=== PATIENT | male | born 1955 | race Caucasian/White ===

== ENCOUNTER 2019-08-18 15:59 | Inpatient (IN) ==
[2019-08-18] MEDS ORDERED: D5% in Water 1,000 ML IVC PRN (17:46)
[2019-08-18] MEDS ORDERED: Dextrose Gel 15 GM/37.5 ML TUBE PO PRN ×2 (17:46)
[2019-08-18] MEDS ORDERED: *HR* Dextrose 50 % in Water (Syg) 50 ML SYRINGE IVP PRN (17:46)
[2019-08-18] MEDS ORDERED: Nitroglycerin 0.4 MG TAB.SUBL SL PRN (17:55)
[2019-08-18] MEDS: Insulin LISPRO 300 UNITS/3 ML VIAL SQ SCH (21:22)
[2019-08-18] MEDS: Aspirin Enteric Coated 81 MG Tablet PO SCH (21:25)
[2019-08-18] MEDS: *HR* OxyCODONE/APAP 5/325 TABLET PO PRN (21:30)
[2019-08-19] MEDS: amLODIPine 5 MG TABLET PO SCH (08:07)
[2019-08-19] MEDS: Loratadine 10 MG TABLET PO SCH (08:07)
[2019-08-19] MEDS: CATAPLEX D PO SCH (08:08)
[2019-08-19] MEDS: Magnesium Oxide 400 MG TABLET PO SCH (08:08)
[2019-08-19] MEDS: GlipiZIDE 5 MG TABLET PO SCH (08:08)
[2019-08-19] MEDS: OMEGA PO SCH (08:09)
[2019-08-19] MEDS: EPA PO SCH (08:09)
[2019-08-19] MEDS: DHA PO SCH (08:09)
[2019-08-19] MEDS: Insulin LISPRO 300 UNITS/3 ML VIAL SQ SCH ×4 (08:09→20:40)
[2019-08-19] MEDS: [UNRECOGNIZED DRUG - OTHER] PO SCH (08:09)
[2019-08-19 08:33] LABS: Basophils # 0.1 K/mcL (0.0-0.2); Basophils % 0.8 %; Eosinophils # 0.3 K/mcL (0.0-0.6); Eosinophils % 3.4 %; Hematocrit 35.5 % (37.5-50.1); Immature Granulocytes % 1.3 % (0-4); Lymphocytes # 1.7 K/mcL (0.6-4.6); Lymphocytes % 18.4 %; Mean Corpuscular HGB Conc 34.1 g/dL (31.6-35.5); Mean Corpuscular Hemoglobin 31.3 pg (28.0-33.3); Mean Platelet Volume 9.2 fL (9.4-12.4); Monocytes # 0.8 K/mcL (0.0-1.3); Monocytes % 8.1 %; Neutrophils # 6.4 K/mcL (1.6-8.9); Platelet Count 572 K/mcL (140-400); Red Blood Count 3.86 M/mcL (4.19-5.50); Red Cell Distribution Width 12.2 % (11.5-14.5); White Blood Count 9.5 K/mcL (4.3-11.1)
[2019-08-19 08:42] LABS: BUN/Creatinine Ratio 24 (6-26); Blood Urea Nitrogen 22 mg/dL (8-23); Calcium 9.9 mg/dL (8.6-10.3); Carbon Dioxide 27 mEq/L (23-29); Chloride 99 mEq/L (98-107); Glucose 216 mg/dL (70-105); Osmolality,Calculated 288 (280-300); Potassium 4.1 mEq/L (3.5-5.1); Sodium 134 mEq/L (136-145); eGFR For African Americans > 60 (> 60); eGFR For Non-African Americans > 60 (> 60)
[2019-08-19 09:45] LABS: Hemoglobin 12.1 g/dL (12.9-16.9)
[2019-08-19] MEDS: Aspirin Enteric Coated 81 MG Tablet PO SCH (17:24)
[2019-08-19] MEDS: *HR* OxyCODONE/APAP 5/325 TABLET PO PRN (21:12)
[2019-08-20] MEDS: amLODIPine 5 MG TABLET PO SCH (08:22)
[2019-08-20] MEDS: Loratadine 10 MG TABLET PO SCH (08:22)
[2019-08-20] MEDS: Insulin LISPRO 300 UNITS/3 ML VIAL SQ SCH ×4 (08:23→21:36)
[2019-08-20] MEDS: Magnesium Oxide 400 MG TABLET PO SCH (08:23)
[2019-08-20] MEDS: GlipiZIDE 5 MG TABLET PO SCH (08:23)
[2019-08-20] MEDS: [UNRECOGNIZED DRUG - OTHER] PO SCH (08:24)
[2019-08-20] MEDS: EPA PO SCH (08:24)
[2019-08-20] MEDS: DHA PO SCH (08:24)
[2019-08-20] MEDS: CATAPLEX D PO SCH (08:24)
[2019-08-20] MEDS: OMEGA PO SCH (08:24)
[2019-08-20] MEDS: Aspirin Enteric Coated 81 MG Tablet PO SCH (17:59)
[2019-08-20] MEDS: *HR* OxyCODONE/APAP 5/325 TABLET PO PRN (21:24)
[2019-08-20] MEDS ORDERED: Sennosides/Docusate Sodium TABLET PO PRN (23:41)
[2019-08-21 05:43] LABS: Hematocrit 33.3 % (37.5-50.1); Hemoglobin 11.3 g/dL (12.9-16.9); Mean Corpuscular HGB Conc 33.9 g/dL (31.6-35.5); Mean Corpuscular Hemoglobin 31.2 pg (28.0-33.3); Mean Platelet Volume 9.2 fL (9.4-12.4); Platelet Count 491 K/mcL (140-400); Red Blood Count 3.62 M/mcL (4.19-5.50); Red Cell Distribution Width 12.1 % (11.5-14.5); White Blood Count 7.3 K/mcL (4.3-11.1)
[2019-08-21 05:58] LABS: BUN/Creatinine Ratio 20 (6-26); Blood Urea Nitrogen 16 mg/dL (8-23); Calcium 9.1 mg/dL (8.6-10.3); Carbon Dioxide 26 mEq/L (23-29); Chloride 105 mEq/L (98-107); Glucose 186 mg/dL (70-105); Magnesium 2.2 mg/dL (1.6-2.6); Osmolality,Calculated 284 (280-300); Potassium 4.4 mEq/L (3.5-5.1); Sodium 134 mEq/L (136-145); eGFR For African Americans > 60 (> 60); eGFR For Non-African Americans > 60 (> 60)
[2019-08-21] MEDS: OMEGA PO SCH (07:55)
[2019-08-21] MEDS: EPA PO SCH (07:55)
[2019-08-21] MEDS: GlipiZIDE 5 MG TABLET PO SCH (07:55)
[2019-08-21] MEDS: [UNRECOGNIZED DRUG - OTHER] PO SCH (07:55)
[2019-08-21] MEDS: CATAPLEX D PO SCH (07:55)
[2019-08-21] MEDS: amLODIPine 5 MG TABLET PO SCH (07:55)
[2019-08-21] MEDS: DHA PO SCH (07:55)
[2019-08-21] MEDS: Loratadine 10 MG TABLET PO SCH (07:56)
[2019-08-21] MEDS: Insulin LISPRO 300 UNITS/3 ML VIAL SQ SCH ×4 (07:56→20:59)
[2019-08-21] MEDS: Magnesium Oxide 400 MG TABLET PO SCH (07:56)
[2019-08-21] MEDS: levoFLOXacin 500 MG TABLET PO SCH (12:50)
[2019-08-21 13:09] LABS: Bilirubin,Urine Negative (Negative); Blood,Urine Negative (Negative); Clarity,Urine Clear (Clear); Color,Urine Yellow (Yellow); Glucose,Urine (UA) Normal (Normal); Ketones,Urine Negative (Negative); Leukocyte Esterase,Urine Negative (Negative); Nitrite,Urine Negative (Negative); PH,Urine 6.5 pH Units (5.0-8.0); Protein,Urine Negative (Neg-Trace); Specific Gravity,Urine 1.025 (1.010-1.025); Urobilinogen,Urine Normal (Normal)
[2019-08-21] MEDS: Aspirin Enteric Coated 81 MG Tablet PO SCH (17:08)
[2019-08-21] MEDS: *HR* OxyCODONE/APAP 5/325 TABLET PO PRN (20:57)
[2019-08-22] MEDS: levoFLOXacin 500 MG TABLET PO SCH (08:20)
[2019-08-22] MEDS: Loratadine 10 MG TABLET PO SCH (08:20)
[2019-08-22] MEDS: GlipiZIDE 5 MG TABLET PO SCH (08:20)
[2019-08-22] MEDS: Magnesium Oxide 400 MG TABLET PO SCH (08:20)
[2019-08-22] MEDS: amLODIPine 5 MG TABLET PO SCH (08:21)
[2019-08-22] MEDS: DHA PO SCH (08:22)
[2019-08-22] MEDS: CATAPLEX D PO SCH (08:22)
[2019-08-22] MEDS: OMEGA PO SCH (08:22)
[2019-08-22] MEDS: EPA PO SCH (08:22)
[2019-08-22] MEDS: [UNRECOGNIZED DRUG - OTHER] PO SCH (08:22)
[2019-08-22] MEDS: Insulin LISPRO 300 UNITS/3 ML VIAL SQ SCH ×4 (08:28→20:50)
[2019-08-22] MEDS: Aspirin Enteric Coated 81 MG Tablet PO SCH (18:26)
[2019-08-23] MEDS: GlipiZIDE 5 MG TABLET PO SCH (08:12)
[2019-08-23] MEDS: amLODIPine 5 MG TABLET PO SCH (08:12)
[2019-08-23] MEDS: Magnesium Oxide 400 MG TABLET PO SCH (08:13)
[2019-08-23] MEDS: Loratadine 10 MG TABLET PO SCH (08:13)
[2019-08-23] MEDS: levoFLOXacin 500 MG TABLET PO SCH (08:14)
[2019-08-23] MEDS: OMEGA PO SCH (08:15)
[2019-08-23] MEDS: EPA PO SCH (08:15)
[2019-08-23] MEDS: [UNRECOGNIZED DRUG - OTHER] PO SCH (08:15)
[2019-08-23] MEDS: DHA PO SCH (08:15)
[2019-08-23] MEDS: CATAPLEX D PO SCH (08:15)
[2019-08-23] MEDS: Insulin LISPRO 300 UNITS/3 ML VIAL SQ SCH ×4 (08:22→21:06)
[2019-08-23] MEDS: Aspirin Enteric Coated 81 MG Tablet PO SCH (17:30)
[2019-08-24] MEDS: GlipiZIDE 5 MG TABLET PO SCH (07:54)
[2019-08-24] MEDS: Insulin LISPRO 300 UNITS/3 ML VIAL SQ SCH ×4 (07:54→21:37)
[2019-08-24] MEDS: amLODIPine 5 MG TABLET PO SCH (07:54)
[2019-08-24] MEDS: Magnesium Oxide 400 MG TABLET PO SCH (07:55)
[2019-08-24] MEDS: [UNRECOGNIZED DRUG - OTHER] PO SCH (07:55)
[2019-08-24] MEDS: levoFLOXacin 500 MG TABLET PO SCH (07:55)
[2019-08-24] MEDS: EPA PO SCH (07:55)
[2019-08-24] MEDS: DHA PO SCH (07:55)
[2019-08-24] MEDS: Loratadine 10 MG TABLET PO SCH (07:55)
[2019-08-24] MEDS: OMEGA PO SCH (07:55)
[2019-08-24] MEDS: CATAPLEX D PO SCH (07:55)
[2019-08-24] MEDS: Aspirin Enteric Coated 81 MG Tablet PO SCH (17:07)
[2019-08-25] MEDS: DHA PO SCH (07:46)
[2019-08-25] MEDS: EPA PO SCH (07:46)
[2019-08-25] MEDS: OMEGA PO SCH (07:46)
[2019-08-25] MEDS: [UNRECOGNIZED DRUG - OTHER] PO SCH (07:46)
[2019-08-25] MEDS: CATAPLEX D PO SCH (07:46)
[2019-08-25] MEDS: GlipiZIDE 5 MG TABLET PO SCH (08:01)
[2019-08-25] MEDS: Magnesium Oxide 400 MG TABLET PO SCH (08:01)
[2019-08-25] MEDS: Insulin LISPRO 300 UNITS/3 ML VIAL SQ SCH ×2 (08:02→11:54)
[2019-08-25] MEDS: Loratadine 10 MG TABLET PO SCH (08:02)
[2019-08-25] MEDS: levoFLOXacin 500 MG TABLET PO SCH (08:02)
[2019-08-25] MEDS: amLODIPine 5 MG TABLET PO SCH (08:02)
[2019-08-25 08:28] VITALS: BP 155/78
== END 2019-08-25 14:34 | disposition home or self-care (01) | DRG 56 ==
LOC: INPGRE 16:31
PROVIDERS: ADMIT Family Medicine; ATTEND Family Medicine